=== PATIENT | female | born 1995 | race Caucasian/White ===

== ENCOUNTER 2016-10-14 13:11 | Emergency (ER) | payer OTHER ==
[2016-10-14] MEDS ORDERED: ONDANSETRON PF 4 MG/2 ML VIAL. ONE (13:33)
[2016-10-14] MEDS ORDERED: ONDANSETRON PF 4 MG/2 ML VIAL. IV ONE (13:45)
[2016-10-14 13:46] LABS: BASO # 0.1 x10^3/uL (0.0-0.2); BASO % 1 % (0-3); EOS % 1 % (0-3); HEMATOCRIT 39.9 % (36.0-47.0); HEMOGLOBIN 13.4 g/dL (12.0-15.5); LYMPH # 1.4 x10^3/uL (1.0-4.8); LYMPH % 9 % (24-48); MEAN CORPUSCULAR HEMOGLOBIN 30 pg (25-35); MEAN CORPUSCULAR HGB CONC 34 g/dL (31-37); MEAN CORPUSCULAR VOLUME 88 fL (79-100); MONO % 3 % (0-9); NEUT % 86 % (31-73); PLATELET COUNT 243 x10^3/uL (140-400); RED BLOOD COUNT 4.55 x10^6/uL (3.50-5.40); RED CELL DISTRIBUTION WIDTH 13.6 % (11.5-14.5); WHITE BLOOD COUNT 15.2 x10^3/uL (4.0-11.0)
[2016-10-14 13:52] LABS: CALCIUM 9.2 mg/dL (8.5-10.1); CREATININE 0.8 mg/dL (0.6-1.0); GFR 91.4
[2016-10-14 13:59] LABS: ALBUMIN 3.9 g/dL (3.4-5.0); ALBUMIN/GLOBULIN RATIO 1.1 (1.0-1.7); TOTAL BILIRUBIN 0.8 mg/dL (0.2-1.0); TOTAL PROTEIN 7.6 g/dL (6.4-8.2)
[2016-10-14] MEDS ORDERED: FENTANYL PF 100 MCG/2 ML VIAL. IV ONE (14:00)
[2016-10-14 14:21] LABS: BILIRUBIN,URINE SMALL (NEG); GLUCOSE,URINE NEGATIVE (NEG); NITRITE,URINE NEGATIVE (NEG); PH,URINE 6.5; PROTEIN,URINE NEGATIVE (NEG-TRACE); UROBILINOGEN,URINE 0.2 mg/dL (0.2 mg/dL)
[2016-10-14] MEDS ORDERED: IV NORMAL SALINE 1000ML BAG 1,000 ML IV ONE (14:30)
[2016-10-14 14:31] LABS: BACTERIA,URINE MODERATE /HPF (0-FEW); RBC,URINE 0 /HPF (0-2); SQUAMOUS EPITHELIAL CELL,UR MOD /LPF
[2016-10-14 14:43] LABS: NEG OBC SER NEG; POS OBC SER POS
[2016-10-14 14:52] LABS: % BASOS 2 % (0-3); % EOS 4 % (0-5); OVALOCYTES OCC; PLT ESTIMATE ADEQUATE (ADEQUATE); POLYCHROMASIA SLIGHT
--- NOTE | 2016-10-14 15:18 | EKG ---
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
[2016-10-14 15:30] VITALS: BP 102/58
--- NOTE | 2016-10-14 16:44 | RAD ---
Obstetrical ultrasound, 10/14/2016: History: Pelvic pain, Transabdominal and transvaginal scans were obtained. The uterus contains a single gestational sac. The gestational sac contains a yolk sac and a pole demonstrating a crown-rump length of 5 mm. This suggests a gestational age of 6 weeks and 2 days yielding a sonographic EDC of 06/07/2017. heart motion is present. There is no evidence of subchorionic hemorrhage. The left ovary is unremarkable. The right ovary was less clearly seen, however, it contains a 2.7 cm hypoechoic area compatible with a cyst. IMPRESSION: 1. Viable intrauterine of 6-7 weeks gestational age. 2. Small right ovarian cyst.
[2016-10-14] MEDS ORDERED: DOXY1TAB3 PO (16:59)
[2016-10-14] MEDS ORDERED: PREN1TAB58 PO (17:00)
--- NOTE | 2016-10-14 17:00 | PHYS DOC ---
Past Medical History Past Medical History: No Pertinent History Past Surgical History: No Surgical History Alcohol Use: None Drug Use: None Adult General Chief Complaint Chief Complaint: ABDOMINAL PAIN HPI HPI 20-year-old female who states she's having upper abdominal pain for the last several days as well as some nausea. She does not state anything makes the pain better or worse. She states she's had little to eat or drink throughout the day because of her symptoms. She states her stools have been normal. She denies any dysuria or hematuria. She denies any vaginal bleeding. Patient states she is sexually active but uses protection. She states her last menstrual period was approximately 4 weeks ago. She denies any significant health problems. Review of Systems Review of Systems Constitutional: Denies fever or chills [] Eyes: Denies change in visual acuity, redness, or eye pain [] HENT: Denies nasal congestion or sore throat [] Respiratory: Denies cough or shortness of breath [] Cardiovascular: No additional information not addressed in HPI [] GI: Has abdominal pain, has nausea, denies vomiting, denies bloody stools or diarrhea [] : Denies dysuria or hematuria [] Musculoskeletal: Denies back pain or joint pain [] Integument: Denies rash or skin lesions [] Neurologic: Denies headache, focal weakness or sensory changes [] Endocrine: Denies polyuria or polydipsia [] Current Medications Current Medications Current Medications Medications (Trade) Dose Ordered Sig/[facility] Start Time Stop Time Status Last Admin Dose Admin Fentanyl Citrate (Fentanyl 2ml Vial) 50 mcg 1X ONCE 10/14/16 14:00 10/14/16 14:01 DC 10/14/16 14:28 50 MCG Ondansetron HCl (Zofran) 4 mg 1X ONCE 10/14/16 13:45 10/14/16 13:52 DC 10/14/16 13:45 4 MG Ondansetron HCl 4 mg 4 mg STK-MED ONCE 10/14/16 13:33 10/14/16 13:34 DC Sodium Chloride (Iv Sodium Chloride 0.9% 1000ml Bag) 1,000 ml @ 1,000 mls/hr 1X ONCE 10/14/16 14:30 10/14/16 15:29 DC 10/14/16 14:18 1,000 MLS/HR Allergies Allergies Allergies Coded Allergies Type Severity Reaction Last Updated Verified No Known Drug Allergies 10/14/16 No Physical Exam Physical Exam Constitutional: Well developed, well nourished, no acute distress, non-toxic appearance. [] HENT: Normocephalic, atraumatic, bilateral external ears normal, oropharynx moist, no oral exudates, nose normal. [] Eyes: PERRLA, EOMI, conjunctiva normal, no discharge. [] Neck: Normal range of motion, no tenderness, supple, no stridor. [] Cardiovascular:Heart rate regular rhythm, no murmur [] Lungs & Thorax: Bilateral breath sounds clear to auscultation [] Abdomen: Bowel sounds normal, soft, mild epigastric and LUQ tenderness, no masses, no pulsatile masses. [] Skin: Warm, dry, no erythema, no rash. [] Back: No tenderness, no CVA tenderness. [] Extremities: No tenderness, no cyanosis, no clubbing, ROM intact, no edema. [] Neurologic: Alert and oriented X 3, normal motor function, normal sensory function, no focal deficits noted. [] Psychologic: Affect normal, judgement normal, mood normal. [] Current Patient Data Vital Signs Vital Signs Date Time Temp Pulse Resp B/P Pulse Ox O2 Delivery O2 Flow Rate FiO2 10/14/16 15:30 92 102/58 100 10/14/16 14:28 12 10/14/16 14:00 98.4 Room Air 98.4 Lab Values Laboratory Tests Test 10/14/16 13:24 10/14/16 13:50 10/14/16 14:00 White Blood Count 15.2x10^3/uL (4.0-11.0) H Red Blood Count 4.55x10^6/uL (3.50-5.40) Hemoglobin 13.4g/dL (12.0-15.5) Hematocrit 39.9% (36.0-47.0) Mean Corpuscular Volume 88fL (79-100) Mean Corpuscular Hemoglobin 30pg (25-35) Mean Corpuscular Hemoglobin Concent 34g/dL (31-37) Red Cell Distribution Width 13.6% (11.5-14.5) Platelet Count 243x10^3/uL (140-400) Neutrophils (%) (Auto) 86% (31-73) H Lymphocytes (%) (Auto) 9% (24-48) L Monocytes (%) (Auto) 3% (0-9) Eosinophils (%) (Auto) 1% (0-3) Basophils (%) (Auto) 1% (0-3) Neutrophils # (Auto) 13.1x10^3uL (1.8-7.7) H Lymphocytes # (Auto) 1.4x10^3/uL (1.0-4.8) Monocytes # (Auto) 0.5x10^3/uL (0.0-1.1) Eosinophils # (Auto) 0.1x10^3/uL (0.0-0.7) Basophils # (Auto) 0.1x10^3/uL (0.0-0.2) Segmented Neutrophils % 83% (35-66) H Lymphocytes % 7% (24-48) L Monocytes % 4% (0-10) Eosinophils % 4% (0-5) Basophils % 2% (0-3) Platelet Estimate Adequate (ADEQUATE) Giant Platelets Polychromasia Slight Ovalocytes Occ Maternal Serum HCG Beta Subunit 41395iCL/mL (0-6) H Sodium Level 140mmol/L (136-145) Potassium Level 4.0mmol/L (3.5-5.1) Chloride Level 103mmol/L (98-107) Carbon Dioxide Level 24mmol/L (21-32) Anion Gap 13 (6-14) Blood Urea Nitrogen 13mg/dL (7-20) Creatinine 0.8mg/dL (0.6-1.0) Estimated GFR (Cockcroft-Gault) 91.4 BUN/Creatinine Ratio 16 (6-20) Glucose Level 93mg/dL (70-99) Calcium Level 9.2mg/dL (8.5-10.1) Total Bilirubin 0.8mg/dL (0.2-1.0) Aspartate Amino Transferase (AST) 16U/L (15-37) Alanine Aminotransferase (ALT) 10U/L (14-59) L Alkaline Phosphatase 60U/L (46-116) Total Protein 7.6g/dL (6.4-8.2) Albumin 3.9g/dL (3.4-5.0) Albumin/Globulin Ratio 1.1 (1.0-1.7) Lipase 122U/L (73-393) Serum Test, Qualitative Positive (NEG) POC Urine HCG, Qualitative Hcg positive (Negative) Urine Color Elayne Urine Clarity Clear Urine pH 6.5 Urine Specific [place] >=1.030 Urine Protein Negativemg/dL (NEG-TRACE) Urine Glucose (UA) Negativemg/dL (NEG) Urine Ketones (Stick) Tracemg/dL (NEG) Urine Blood Negative (NEG) Urine Nitrite Negative (NEG) Urine Bilirubin Small (NEG) Urine Urobilinogen Dipstick 0.2mg/dL (0.2 mg/dL) Urine Leukocyte Esterase Small (NEG) Urine RBC 0/HPF (0-2) Urine WBC 1-4/HPF (0-4) Urine Squamous Epithelial Cells Mod/LPF Urine Bacteria Moderate/HPF (0-FEW) Urine Mucus Mod/LPF Laboratory Tests 10/14/16 13:24 Laboratory Tests 10/14/16 13:24 EKG EKG [] Radiology/Procedures Radiology/Procedures Transvaginal OB ultrasound demonstrated the followin. Viable intrauterine of 6-7 weeks gestational age. 2. Small right ovarian cyst. Course & Med Decision Making Course & Med Decision Making Pertinent Labs and Imaging studies reviewed. (See chart for details) 20-year-old female who's having subjective nausea and abdominal pain complaints has a urine test that is positive. Her serum quantitative value for the is 34,000. Because of her pain, I ordered a transvaginal ultrasound that demonstrated a viable IUP with a gestational sac that is an estimated 6-7 weeks gestation with heart motion. Her laboratory workup is fairly unremarkable otherwise. Her white count is slightly elevated but this is nonspecific and . Her pain was well-controlled in the department with one dose of pain control. I'll be discharging her with a course of vitamins and diclegis for nausea as well as follow-up with OB in the next several days for her . She was discharged without incident. Dragon Disclaimer Dragon Disclaimer This electronic medical record was generated, in whole or in part, using a voice recognition dictation system. Departure Departure Impression: Primary Impression: Abdominal pain Additional Impression: Disposition: 01 HOME, SELF-CARE Admitting Physician: Other Condition: STABLE Referrals: ELSA JIN (PCP) JOSH MISTRY MD Patient Instructions: Abdominal Pain During , [id number] Additional Instructions: Please follow up with the OB doctor in the next 2-3 days for your . Take your vitamins as prescribed. Return to the ER if you develop any worsening of your symptoms. Scripts Vits W-Ca,Fe,Fa(<1MG) ( Vitamins)1 Each Tablet1 Each PO 1X #20 Prov:JING MENDEZ DO 10/14/16 Doxylamine/Pyridoxine Hcl (Diclegis Dr 10-10 Mg Tablet)1 Each Tablet.dr1 Each PO DAILY #10 Prov:JING MENDEZ DO 10/14/16 Problem Qualifiers JING MENDEZ DO Oct 14, 2016 17:00
== END 2016-10-14 17:24 | disposition home or self-care (01) ==
LOC: ER 13:11
DX: O26.891 Other specified pregnancy related conditions, first trimester (principal); R10.10 Upper abdominal pain, unspecified; N83.201 Unspecified ovarian cyst, right side; Z3A.01 Less than 8 weeks gestation of pregnancy
CPT/HCPCS: 36415; 76817; 80053; 81001; 81025; 83690; 84702; 84703; 85007; 85027; 86850; 86900; 86901; 87086; 93005; 96361; 96374; 96375; 99285; J2405; J3010; J7030